=== PATIENT | female | born 1945 | race Caucasian/White ===

== ENCOUNTER 2018-12-03 20:51 | Inpatient (IN) | payer MEDICARE, OTHER ==
[2018-12-04 03:09] LABS: ADD MAN DIFF? NO
[2018-12-04 03:14] LABS: WHITE BLOOD COUNT 22.8 10^3/ul (4.8-10.8)
[2018-12-04 03:14] LABS: BASOPHIL # 0.1 10^3/ul (0.0-0.1); BASOPHILS % 0.4 % (0.0-2.0); LYMPHOCYTES # 3.2 10^3/ul (0.8-2.9); LYMPHOCYTES % 14.1 % (15.0-51.0); MEAN CORPUSCULAR HEMOGLOBIN 25.4 pg (29.0-33.0); MEAN CORPUSCULAR HGB CONC 31.7 g/dl (32.0-37.0); MEAN CORPUSCULAR VOLUME 80.1 fl (82.0-101.0); MEAN PLATELET VOLUME 10.3 fl (7.4-10.4); MONOCYTES % 4.3 % (0.0-11.0); NEUTROPHIL # 18.3 10^3/ul (1.6-7.5); NEUTROPHILS % 80.5 % (39.0-77.0); PLATELET COUNT 396 10^3/UL (140-415); RED BLOOD COUNT 5.12 10^6/ul (4.20-5.40)
[2018-12-04] MEDS: HYDROCODONE/APAP (7.5/325) TAB PO (03:25)
[2018-12-04 03:34] LABS: ANION GAP 12 (5-13); BLOOD UREA NITROGEN 16 mg/dl (7-20); CARBON DIOXIDE 22 mmol/L (21-31); CHLORIDE 107 mmol/L (97-110); GLUCOSE 171 mg/dl (70-220); POTASSIUM 3.3 mmol/L (3.5-5.1); SODIUM 141 mmol/L (135-144)
[2018-12-04 04:25] LABS: C-REACTIVE PROTEIN 14.3 mg/dl (0.0-0.9)
[2018-12-04 05:25] LABS: ERYTHROCYTE SEDIMENTATION RATE 25 mm/Hr (0-30)
[2018-12-04] MEDS ORDERED: ACETAMINOPHEN 325 MG TAB PO ×2 (06:30→07:30)
[2018-12-04] MEDS ORDERED: ONDANSETRON 4 MG INJ IV ×2 (06:30→07:30)
[2018-12-04] MEDS: HYDROCODONE/APAP (5/325) TAB PO ×2 (06:36→12:12)
[2018-12-04] MEDS ORDERED: NACL 0.9% 3 ML SYG IV (07:30)
[2018-12-04] MEDS ORDERED: HYDROCODONE/APAP (5/325) TAB PO (07:30)
[2018-12-04] MEDS ORDERED: VANCOMYCIN IV PER PHARMACY XX (08:30)
[2018-12-04] MEDS: SOD CHLORIDE 0.9% 1,000 ML IV ×3 (08:49→20:56)
[2018-12-04] MEDS: PIPER-TAZO 3.375 GM IV (PMX) 100 ML IVPB (09:50)
[2018-12-04] MEDS: VANCOMYCIN HCL 1.5 GM in SOD CHLORIDE 0.9% 250 ML IVPB (11:10)
[2018-12-04] MEDS: POTASSIUM CHLORIDE 20 MEQ POWDER FOR ORAL SOLN PO (12:20)
[2018-12-04] MEDS ORDERED: DOCUSATE SODIUM 100 MG CAP PO (13:00)
[2018-12-04] MEDS ORDERED: ALBUTEROL 0.083% (NEB) 2.5 MG/3 ML AMP HHN (13:00)
[2018-12-04] MEDS ORDERED: GUAIFENESIN/DM 5ML CUP PO (13:00)
[2018-12-04] MEDS: HYDROCODONE/APAP (10/325) TAB PO ×2 (18:06→22:37)
[2018-12-04] MEDS: LACTOBACILLUS RHAMNOSUS CAP PO (20:50)
[2018-12-05] MEDS: SOD CHLORIDE 0.9% 1,000 ML IV ×3 (03:22→23:11)
[2018-12-05] MEDS: HYDROCODONE/APAP (10/325) TAB PO ×4 (04:54→20:17)
[2018-12-05] MEDS: LEVOTHYROXINE 125 MCG TAB PO (06:06)
[2018-12-05 06:59] LABS: ADD MAN DIFF? NO
[2018-12-05 07:06] LABS: WHITE BLOOD COUNT 11.6 10^3/ul (4.8-10.8)
[2018-12-05 07:06] LABS: BASOPHIL # 0.1 10^3/ul (0.0-0.1); BASOPHILS % 0.5 % (0.0-2.0); EOSINOPHILS # 0.2 10^3/ul (0.0-0.5); EOSINOPHILS % 1.9 % (0.0-7.0); HEMATOCRIT 36.7 % (37.0-47.0); HEMOGLOBIN 11.3 g/dl (12.0-16.0); LYMPHOCYTES # 3.4 10^3/ul (0.8-2.9); LYMPHOCYTES % 29.4 % (15.0-51.0); MEAN CORPUSCULAR HEMOGLOBIN 25.6 pg (29.0-33.0); MEAN CORPUSCULAR HGB CONC 30.8 g/dl (32.0-37.0); MEAN CORPUSCULAR VOLUME 83.2 fl (82.0-101.0); MEAN PLATELET VOLUME 10.6 fl (7.4-10.4); MONOCYTE # 0.8 10^3/ul (0.3-0.9); MONOCYTES % 6.6 % (0.0-11.0); NEUTROPHIL # 7.1 10^3/ul (1.6-7.5); NEUTROPHILS % 61.1 % (39.0-77.0); PLATELET COUNT 337 10^3/UL (140-415); RED BLOOD COUNT 4.41 10^6/ul (4.20-5.40); RED CELL DISTRIBUTION WIDTH 15.4 % (11.5-14.5)
[2018-12-05 07:24] LABS: INR 1.04; PROTIME 13.7 Sec (11.9-14.9); PT RATIO 1.1
[2018-12-05 07:40] LABS: ALANINE AMINOTRANSFERASE 19 IU/L (13-69); ALBUMIN 3.5 g/dl (3.3-4.9); ALBUMIN/GLOBULIN RATIO 1.16; ALKALINE PHOSPHATASE 101 IU/L (42-121); ANION GAP 6 (5-13); ASPARTATE AMINO TRANSFERASE 20 IU/L (15-46); BILIRUBIN,INDIRECT 0.2 mg/dl (0-1.1); BILIRUBIN,TOTAL 0.2 mg/dl (0.2-1.3); BLOOD UREA NITROGEN 13 mg/dl (7-20); CALCIUM 9.4 mg/dl (8.4-10.2); CARBON DIOXIDE 28 mmol/L (21-31); CHLORIDE 109 mmol/L (97-110); CREATININE 0.76 mg/dl (0.44-1.00); GLUCOSE 118 mg/dl (70-220); MAGNESIUM 2.1 mg/dl (1.7-2.5); PHOSPHORUS 2.9 mg/dl (2.5-4.9); POTASSIUM 3.8 mmol/L (3.5-5.1); SODIUM 143 mmol/L (135-144); TOTAL PROTEIN 6.5 g/dl (6.1-8.1)
[2018-12-05] MEDS: FAMOTIDINE 20 MG TAB PO (09:00)
[2018-12-05] MEDS: LACTOBACILLUS RHAMNOSUS CAP PO ×2 (09:00→20:19)
[2018-12-05] MEDS ORDERED: VANCOMYCIN HCL 1.25 GM in SOD CHLORIDE 0.9% 250 ML IVPB (09:00)
[2018-12-05 09:01] LABS: C-REACTIVE PROTEIN 18.7 mg/dl (0.0-0.9)
[2018-12-05] MEDS: POTASSIUM CHLORIDE 20 MEQ POWDER FOR ORAL SOLN PO (09:09)
[2018-12-05 09:16] LABS: ERYTHROCYTE SEDIMENTATION RATE 38 mm/Hr (0-30)
[2018-12-06] MEDS: HYDROCODONE/APAP (10/325) TAB PO ×5 (00:23→20:30)
[2018-12-06] MEDS: LEVOTHYROXINE 125 MCG TAB PO (05:22)
[2018-12-06] MEDS: LACTOBACILLUS RHAMNOSUS CAP PO ×2 (09:00→20:31)
[2018-12-06] MEDS: POTASSIUM CHLORIDE 20 MEQ POWDER FOR ORAL SOLN PO (09:00)
[2018-12-06] MEDS: FAMOTIDINE 20 MG TAB PO (09:00)
[2018-12-06] MEDS: SOD CHLORIDE 0.9% 1,000 ML IV ×3 (09:22→19:22)
[2018-12-06 14:07] LABS: ADD MAN DIFF? NO
[2018-12-06 14:09] LABS: BASOPHIL # 0.1 10^3/ul (0.0-0.1); BASOPHILS % 0.5 % (0.0-2.0); EOSINOPHILS # 0.3 10^3/ul (0.0-0.5); EOSINOPHILS % 2.3 % (0.0-7.0); HEMATOCRIT 35.8 % (37.0-47.0); LYMPHOCYTES # 2.8 10^3/ul (0.8-2.9); LYMPHOCYTES % 25.2 % (15.0-51.0); MEAN CORPUSCULAR HEMOGLOBIN 25.5 pg (29.0-33.0); MEAN CORPUSCULAR HGB CONC 30.7 g/dl (32.0-37.0); MEAN CORPUSCULAR VOLUME 82.9 fl (82.0-101.0); MEAN PLATELET VOLUME 10.2 fl (7.4-10.4); MONOCYTE # 0.6 10^3/ul (0.3-0.9); NEUTROPHIL # 7.4 10^3/ul (1.6-7.5); NEUTROPHILS % 66.5 % (39.0-77.0); PLATELET COUNT 338 10^3/UL (140-415); RED BLOOD COUNT 4.32 10^6/ul (4.20-5.40); RED CELL DISTRIBUTION WIDTH 15.1 % (11.5-14.5)
[2018-12-06 14:09] LABS: WHITE BLOOD COUNT 11.1 10^3/ul (4.8-10.8)
[2018-12-06 14:28] LABS: ANION GAP 7 (5-13); BLOOD UREA NITROGEN 7 mg/dl (7-20); CALCIUM 9.6 mg/dl (8.4-10.2); CARBON DIOXIDE 25 mmol/L (21-31); CHLORIDE 109 mmol/L (97-110); CREATININE 0.68 mg/dl (0.44-1.00); GLUCOSE 140 mg/dl (70-220); MAGNESIUM 1.8 mg/dl (1.7-2.5); POTASSIUM 3.9 mmol/L (3.5-5.1); SODIUM 141 mmol/L (135-144)
[2018-12-06 14:31] LABS: C-REACTIVE PROTEIN 6.2 mg/dl (0.0-0.9)
[2018-12-06 15:32] LABS: ERYTHROCYTE SEDIMENTATION RATE 37 mm/Hr (0-30)
[2018-12-07] MEDS: HYDROCODONE/APAP (10/325) TAB PO ×4 (00:34→19:33)
[2018-12-07] MEDS ORDERED: NYSTATIN 30 GM POWDER BTL TOP (04:30)
[2018-12-07] MEDS: NYSTATIN 15 GM POWDER BTL TOP ×2 (04:30→09:13)
[2018-12-07] MEDS: SOD CHLORIDE 0.9% 1,000 ML IV ×2 (05:22→15:22)
[2018-12-07 06:15] LABS: ADD MAN DIFF? NO
[2018-12-07 06:25] LABS: BASOPHIL # 0.1 10^3/ul (0.0-0.1); BASOPHILS % 0.5 % (0.0-2.0); EOSINOPHILS # 0.5 10^3/ul (0.0-0.5); EOSINOPHILS % 4.8 % (0.0-7.0); HEMATOCRIT 34.7 % (37.0-47.0); HEMOGLOBIN 10.8 g/dl (12.0-16.0); LYMPHOCYTES # 3.3 10^3/ul (0.8-2.9); LYMPHOCYTES % 33.1 % (15.0-51.0); MEAN CORPUSCULAR HEMOGLOBIN 25.8 pg (29.0-33.0); MEAN CORPUSCULAR HGB CONC 31.1 g/dl (32.0-37.0); MEAN PLATELET VOLUME 10.2 fl (7.4-10.4); MONOCYTE # 0.5 10^3/ul (0.3-0.9); MONOCYTES % 5.5 % (0.0-11.0); NEUTROPHIL # 5.5 10^3/ul (1.6-7.5); NEUTROPHILS % 55.6 % (39.0-77.0); PLATELET COUNT 358 10^3/UL (140-415); RED BLOOD COUNT 4.18 10^6/ul (4.20-5.40); RED CELL DISTRIBUTION WIDTH 15.2 % (11.5-14.5)
[2018-12-07 06:25] LABS: WHITE BLOOD COUNT 9.9 10^3/ul (4.8-10.8)
[2018-12-07 06:42] LABS: MAGNESIUM 1.9 mg/dl (1.7-2.5)
[2018-12-07 06:45] LABS: ANION GAP 9 (5-13); BLOOD UREA NITROGEN 6 mg/dl (7-20); CALCIUM 9.6 mg/dl (8.4-10.2); CARBON DIOXIDE 27 mmol/L (21-31); CHLORIDE 107 mmol/L (97-110); CREATININE 0.69 mg/dl (0.44-1.00); GLUCOSE 131 mg/dl (70-220); POTASSIUM 3.7 mmol/L (3.5-5.1); SODIUM 143 mmol/L (135-144)
[2018-12-07] MEDS: LEVOTHYROXINE 125 MCG TAB PO (06:51)
[2018-12-07 07:14] LABS: C-REACTIVE PROTEIN 4.7 mg/dl (0.0-0.9)
[2018-12-07 07:41] LABS: ERYTHROCYTE SEDIMENTATION RATE 30 mm/Hr (0-30)
[2018-12-07] MEDS: POTASSIUM CHLORIDE 20 MEQ POWDER FOR ORAL SOLN PO (09:00)
[2018-12-07] MEDS: FAMOTIDINE 20 MG TAB PO (09:00)
[2018-12-07] MEDS: LACTOBACILLUS RHAMNOSUS CAP PO (09:00)
== END 2018-12-07 19:45 | disposition left against medical advice (07) | DRG 556 ==
LOC: PP2 12-05 01:32 → FTE 20:51 → PP2 12-04 06:24
DX: M25.862 Other specified joint disorders, left knee (principal); D72.829 Elevated white blood cell count, unspecified; E03.9 Hypothyroidism, unspecified; E66.9 Obesity, unspecified; Z68.31 Body mass index [BMI] 31.0-31.9, adult; E87.6 Hypokalemia; Z85.118 Personal history of other malignant neoplasm of bronchus and lung; Z96.652 Presence of left artificial knee joint; Z86.73 Personal history of transient ischemic attack (TIA), and cerebral infarction without residual deficits; Z87.891 Personal history of nicotine dependence; Z86.718 Personal history of other venous thrombosis and embolism; Z92.3 Personal history of irradiation; Z92.21 Personal history of antineoplastic chemotherapy; Z86.711 Personal history of pulmonary embolism; Z90.2 Acquired absence of lung [part of]
CPT/HCPCS: 36415; 71045; 73562; 80048; 80053; 83735; 84100; 84443; 85025; 85610; 85651; 86140; 93971; 99285-25